=== PATIENT | female | born 1995 | race African-American/Black ===

== ENCOUNTER 2019-04-28 14:51 | Emergency (ER) | payer OTHER ==
[~2019-04-28] VITALS: Ht 167.6 cm; Wt 59.1 kg
[2019-04-28] MEDS ORDERED: OMEP20 PO (14:55)
[2019-04-28] MEDS ORDERED: CARBAMIDE PEROXIDE 6.5% 15 ML OTIC SOLUTION AD ONE (15:30)
[2019-04-28 16:49] VITALS: BP 118/69
== END 2019-04-28 16:50 | disposition home or self-care (01) ==
LOC: EMS 14:51
DX: H61.21 Impacted cerumen, right ear (principal); K21.9 Gastro-esophageal reflux disease without esophagitis
CPT/HCPCS: 69209

== ENCOUNTER 2019-09-16 14:52 | Emergency (ER) | payer OTHER ==
[~2019-09-16] VITALS: Ht 167.6 cm; Wt 58.2 kg
[~2019-09-16 14:52] MED LIST: OMEP20 PO
[2019-09-16] MEDS ORDERED: LIDOCAINE 5% TRANSDERMAL PATCH TD ONE (15:30)
[2019-09-16] MEDS ORDERED: ACETAMINOPHEN 500 MG TABLET PO ONE (15:30)
[2019-09-16 16:21] VITALS: BP 115/71
== END 2019-09-16 16:22 | disposition home or self-care (01) ==
LOC: EMS 14:53
DX: S29.012A Strain of muscle and tendon of back wall of thorax, initial encounter (principal); K21.9 Gastro-esophageal reflux disease without esophagitis; Z79.899 Other long term (current) drug therapy; X50.9XXA Other and unspecified overexertion or strenuous movements or postures, initial encounter; Y93.89 Activity, other specified; Y92.89 Other specified places as the place of occurrence of the external cause; Y99.8 Other external cause status

== ENCOUNTER 2019-10-15 14:22 | Emergency (ER) | payer OTHER ==
[~2019-10-15] VITALS: Ht 167.6 cm; Wt 59.1 kg
[2019-10-15 14:24] VITALS: BP 115/84
[2019-10-15 15:12] LABS: APPEARANCE,URINE CLOUDY (CLEAR); BILIRUBIN,URINE NEGATIVE (NEGATIVE); GLUCOSE, URINE (UA) NEGATIVE (NEGATIVE); KETONES,URINE NEGATIVE (NEGATIVE); LEUKOCYTE ESTERASE ,URINE NEGATIVE (NEGATIVE); NITRATE,URINE NEGATIVE (NEGATIVE); OCCULT BLOOD,URINE NEGATIVE (NEGATIVE); PH,URINE 7.5 (5.0-8.0); PROTEIN,URINE NEGATIVE (NEGATIVE); UROBILINOGEN,URINE 0.2 mg/dL (<=1.0)
== END 2019-10-15 16:56 | disposition left against medical advice (07) ==
LOC: EMS 14:24
DX: R11.0 Nausea (principal); Z53.21 Procedure and treatment not carried out due to patient leaving prior to being seen by health care provider

== ENCOUNTER 2020-01-13 07:23 | Emergency (ER) | payer OTHER, MEDICAID ==
[~2020-01-13] VITALS: Ht 167.6 cm; Wt 56.8 kg
[2020-01-13] MEDS ORDERED: KETOROLAC TROMETHAMINE 30 MG/ML VIAL IVP ONE (07:45)
[2020-01-13] MEDS ORDERED: DEXAMETHASONE SOD PHOS 4 MG/ML 5 ML VIAL IVP ONE (07:45)
[2020-01-13] MEDS ORDERED: CLINDAMYCIN 900 MG/D5% WATER 50 ML IV ONE (07:45)
[2020-01-13] MEDS ORDERED: SODIUM CHLORIDE 0.9% 1,000 ML IV ONE (07:45)
[2020-01-13] MEDS ORDERED: CefTRIAXone SODIUM 2 GM in DEXTROSE 5%-WATER 50 ML IV ONE (07:45)
[2020-01-13 08:04] LABS: BASOPHILS % (AUTO) 0.3 % (0.0-2.0); EOSINOPHILS % (AUTO) 0 % (1.0-6.0); HEMATOCRIT 38.2 % (36-46); HEMOGLOBIN 12.7 g/dL (12.0-16.0); LYMPHOCYTES # (AUTO) 1.2 K/uL (1.0-4.8); LYMPHOCYTES % (AUTO) 5.3 % (22.0-44.0); MEAN CORPUSCULAR HEMOGLOBIN 28.1 pg (26.0-34.0); MEAN CORPUSCULAR HGB CONC 33.2 G/dL (31.0-37.0); MEAN CORPUSCULAR VOLUME 85 fL (80-100); MONOCYTES # (AUTO) 1.6 K/uL (0.1-1.0); MONOCYTES % (AUTO) 7.4 % (2.0-9.0); NEUTROPHILS # (AUTO) 19.1 K/uL (1.8-7.7); PLATELET COUNT (AUTO) 207 K/uL (150-450); RED CELL DISTRIBUTION WIDTH 12.6 % (11.5-14.5)
[2020-01-13] MEDS ORDERED: FAMOTIDINE 10 MG/ML 2 ML VIAL IVP ONE (08:15)
[2020-01-13 08:22] LABS: ANION GAP 14 mmol/L (8-16); CALCIUM, TOTAL 9.7 mg/dL (8.8-10.5); CARBON DIOXIDE 23 mmol/L (22-29); CHLORIDE 97 mmol/L (98-107); CREATININE 0.89 mg/dL (0.60-1.30); GLOMERULAR FILTR. RATE CALC > 60 mL/min (>60); GLUCOSE,RANDOM 128 mg/dL (70-110); POTASSIUM 3.4 mmol/L (3.5-5.1); SODIUM SERUM 134 mmol/L (136-145); UREA NITROGEN, BLOOD 4 mg/dL (7-18)
[2020-01-13 08:23] LABS: ALANINE AMINOTRANSFERASE 35 U/L (12-78); ALBUMIN 3.8 g/dL (3.4-5.0); ALKALINE PHOSPHATASE 64 U/L (46-116); ASPARTATE AMINOTRANSFERASE 14 U/L (15-37); BILIRUBIN,TOTAL 1.7 mg/dL (0.1-1.0); TOTAL PROTEIN, SERUM 8.4 g/dL (6.4-8.2)
[2020-01-13] MEDS ORDERED: SODIUM CHLORIDE 0.9% 100 ML ONE (08:28)
[2020-01-13] MEDS ORDERED: IOVERSOL 320 MG/ML 100 ML VIAL ONE (08:28)
[2020-01-13 10:20] VITALS: BP 108/61
== END 2020-01-13 12:14 | disposition home or self-care (01) ==
LOC: EMS 07:24
DX: J03.90 Acute tonsillitis, unspecified (principal); K21.9 Gastro-esophageal reflux disease without esophagitis; F12.90 Cannabis use, unspecified, uncomplicated
CPT/HCPCS: 36415; 70491; 80053; 84703; 85025; 86308; 87040; 87430; 96361; 96365; 96367; 96375; 99285; J0696; J1100; J1885; J3490 ×2; J7030; J7050; J7060; Q9967

== ENCOUNTER 2020-05-15 15:53 | Emergency (ER) | payer MEDICAID ==
[~2020-05-15] VITALS: Ht 167.6 cm; Wt 59.1 kg
[~2020-05-15 15:53] MED LIST changes: +AMOX500C2 PO; -OMEP20 PO
[2020-05-15 17:32] LABS: CALCIUM, TOTAL 9.5 mg/dL (8.8-10.5); CREATININE 1.54 mg/dL (0.60-1.30); POTASSIUM 3.9 mmol/L (3.5-5.1)
[2020-05-15 18:20] VITALS: BP 124/80
== END 2020-05-15 18:49 | disposition home or self-care (01) ==
LOC: EMS 15:53
DX: R50.9 Fever, unspecified (principal); F12.90 Cannabis use, unspecified, uncomplicated

== ENCOUNTER 2020-05-20 09:03 | Emergency (ER) | payer MEDICAID ==
[~2020-05-20] VITALS: Ht 167.6 cm; Wt 59.1 kg
[2020-05-20] MEDS ORDERED: ALBUTEROL SULFATE HFA 90 MCG/PUFF 8 GM INHALER IH ONE (10:30)
[2020-05-20 11:38] VITALS: BP 118/65
== END 2020-05-20 11:40 | disposition home or self-care (01) ==
LOC: EMS 09:05
DX: R06.00 Dyspnea, unspecified (principal); R06.02 Shortness of breath; R51 Headache; K21.9 Gastro-esophageal reflux disease without esophagitis; F12.90 Cannabis use, unspecified, uncomplicated
CPT/HCPCS: 94640; J3535; 71046; 71046-TC

== ENCOUNTER 2021-05-05 16:30 | Emergency (ER) | payer MEDICAID ==
[~2021-05-05] VITALS: Ht 167.6 cm; Wt 63.6 kg
[2021-05-05] MEDS ORDERED: IBUPROFEN 600 MG TABLET PO ONE (17:00)
[2021-05-05] MEDS ORDERED: DEXAMETHASONE SOD PHOS 4 MG/ML 5 ML VIAL IM ONE (17:00)
[2021-05-05 17:50] VITALS: BP 114/59
== END 2021-05-05 18:02 | disposition home or self-care (01) ==
LOC: EMS 16:32
DX: J02.8 Acute pharyngitis due to other specified organisms (principal); B97.89 Other viral agents as the cause of diseases classified elsewhere; J45.909 Unspecified asthma, uncomplicated; F32.9 Major depressive disorder, single episode, unspecified; F12.90 Cannabis use, unspecified, uncomplicated; Z79.899 Other long term (current) drug therapy; Z79.82 Long term (current) use of aspirin
CPT/HCPCS: 87430; 96372; 99283; J1100

== ENCOUNTER 2021-05-17 16:47 | Emergency (ER) | payer MEDICAID ==
[~2021-05-17] VITALS: Ht 167.6 cm; Wt 65.0 kg
[2021-05-17] MEDS ORDERED: MONT-35 PO (16:59)
[2021-05-17 19:20] VITALS: BP 116/55
== END 2021-05-17 19:29 | disposition home or self-care (01) ==
LOC: EMS 16:48
DX: N76.0 Acute vaginitis (principal); F32.9 Major depressive disorder, single episode, unspecified; J45.909 Unspecified asthma, uncomplicated; K21.9 Gastro-esophageal reflux disease without esophagitis; F12.90 Cannabis use, unspecified, uncomplicated; Z79.899 Other long term (current) drug therapy
CPT/HCPCS: 87491; 87591; 99283

== ENCOUNTER 2022-10-15 08:45 | Emergency (ER) | payer MEDICAID ==
[~2022-10-15] VITALS: Ht 167.6 cm; Wt 59.1 kg
[~2022-10-15 08:45] MED LIST changes: +MONT-35 PO
[2022-10-15 08:48] VITALS: BP 99/61
[2022-10-15] MEDS ORDERED: CARBAMIDE PEROXIDE 6.5% 15 ML OTIC SOLUTION AU ONE (09:15)
== END 2022-10-15 09:59 | disposition home or self-care (01) ==
LOC: EMS 09:08
DX: H61.23 Impacted cerumen, bilateral (principal); J45.909 Unspecified asthma, uncomplicated; F32.A Depression, unspecified; F12.90 Cannabis use, unspecified, uncomplicated
CPT/HCPCS: 99282; Z7502; Z7610